=== PATIENT | male | born 1975 | race Caucasian/White ===

== ENCOUNTER 2022-04-23 17:54 | Emergency (ER) | payer OTHER, MEDICAID ==
[~2022-04-23] VITALS: Ht 170.2 cm; Wt 72.6 kg
[2022-04-23 22:19] VITALS: BP 140/96
== END 2022-04-23 22:19 | disposition home or self-care (01) ==
LOC: ER 17:54
DX: S00.511A Abrasion of lip, initial encounter (principal); I10 Essential (primary) hypertension; Y04.2XXA Assault by strike against or bumped into by another person, initial encounter; Y93.89 Activity, other specified; Y92.89 Other specified places as the place of occurrence of the external cause; Y99.8 Other external cause status
CPT/HCPCS: 70450